=== PATIENT | female | born 1955 | race Caucasian/White ===

== ENCOUNTER 2019-02-21 07:58 | Emergency (ER) | payer BC ==
[2019-02-21 08:14] VITALS: BP 149/80
--- NOTE | 2019-02-21 08:26 | UC ---
Respiratory Complaint HPI - HPI Summary HPI Summary: cough x 1 week cough is productive with yellow sputum + nasal congestion and discharge, PND, no sore throat, no fever, no chills been taking mucinex with some improvements - History of Current Complaint Chief Complaint: UCGeneralIllness Stated Complaint: CONGESTION COUGH FATIGUE Time Seen by Provider: 02/21/19 08:18 Hx Obtained From: Patient Onset/Duration: Gradual Onset, Lasting Days - 7, Still Present Timing: Constant Severity Initially: Moderate Severity Currently: Moderate Pain Intensity: 0 Character: Cough: Productive - yellow sputum Aggravating Factors: Exertion, Deep Breaths Alleviating Factors: Nothing Associated Signs And Symptoms: Positive: URI, Nasal Congestion. Negative: Fever , Chills, Wheezing, Dizziness, Calf Pain, Calf Swelling, Hoarseness, Sinus Discomfort - Allergies/Home Medications Allergies/Adverse Reactions: Allergies Allergy/AdvReac Type Severity Reaction Status Date / Time acetaminophen [From NyQuil] Allergy Rash Verified 02/21/19 08:08 dextromethorphan Allergy Rash Verified 02/21/19 08:08 [From NyQuil] doxylamine [From NyQuil] Allergy Rash Verified 02/21/19 08:08 erythromycin base Allergy Vomiting Verified 02/21/19 08:08 Penicillins Allergy Rash Verified 02/21/19 08:08 pseudoephedrine [From NyQuil] Allergy Rash Verified 02/21/19 08:08 Home Medications: Home Medications Aspirin TAB* [Aspirin 325 MG TAB*] 325 mg PO DAILY 02/21/19 [History Confirmed 02/21/19] Losartan/Hydrochlorothiazide [Losartan-Hctz 100-12.5 mg Tab] 1 each PO DAILY [History Confirmed 02/21/19] Multivitamins/Minerals TAB* [Theragran/minerals TAB*] 1 tab PO DAILY 02/21/19 [ History Confirmed 02/21/19] Simvastatin [Zocor] 40 mg PO DAILY 02/21/19 [History Confirmed 02/21/19] guaiFENesin ER TAB [Mucinex*] 600 mg PO BID 02/21/19 [History Confirmed 02/21/19 ] PMH/Surg Hx/FS Hx/Imm Hx Cardiovascular History: Hypertension - Surgical History Surgical History: Yes Surgery Procedure, Year, and Place: - Family History Known Family History: Negative: Diabetes - Social History Alcohol Use: None Substance Use Type: None Smoking Status (MU): Heavy Every Day Tobacco Smoker Type: Cigarettes Amount Used/How Often: 1/2 PPD Household Exposure Type: Cigarettes Review of Systems All Other Systems Reviewed And Are Negative: Yes Constitutional: Positive: Negative Skin: Positive: Negative Eyes: Positive: Negative ENT: Positive: Nasal Discharge Respiratory: Positive: Cough Cardiovascular: Positive: Negative Is Patient Immunocompromised?: No Physical Exam Triage Information Reviewed: Yes Appearance: Well-Appearing, No Pain Distress, Well-Nourished Vital Signs: Initial Vital Signs Temp 98.7 F 02/21/19 08:08 Pulse 71 02/21/19 08:08 Resp 17 02/21/19 08:08 BP 149/80 02/21/19 08:08 Pulse Ox 98 02/21/19 08:08 Vital Signs Reviewed: Yes Eye Exam: Normal Eyes: Positive: Conjunctiva Clear ENT: Positive: Normal ENT inspection, Nasal drainage, TMs normal. Negative: TM bulging, TM dull, TM red, Tonsillar swelling, Tonsillar exudate, Sinus tenderness Neck: Positive: Supple, Nontender, No Lymphadenopathy Respiratory: Positive: Chest non-tender, Lungs clear, Normal breath sounds Cardiovascular: Positive: RRR, No Murmur, Pulses Normal Skin Exam: Normal Respiratory Course/Dx - Differential Dx/Diagnosis Provider Diagnosis: URI (upper respiratory infection) Discharge - Sign-Out/Discharge Documenting (check all that apply): Patient Departure All imaging exams completed and their final reports reviewed: No Studies - Discharge Plan Condition: Stable Disposition: HOME Patient Education Materials: Upper Respiratory Infection (DC) Referrals: Anahy Crisostomo MD [Primary Care Provider] - If Needed - Billing Disposition and Condition Condition: STABLE Disposition: Home
== END 2019-02-21 08:25 | disposition home or self-care (01) ==
LOC: UCCORT 07:58
DX: J06.9 Acute upper respiratory infection, unspecified (principal); R53.83 Other fatigue; I10 Essential (primary) hypertension; F17.210 Nicotine dependence, cigarettes, uncomplicated; Z79.82 Long term (current) use of aspirin; Z79.899 Other long term (current) drug therapy; Z88.0 Allergy status to penicillin; Z88.1 Allergy status to other antibiotic agents; Z88.8 Allergy status to other drugs, medicaments and biological substances
CPT/HCPCS: 99211; G0463

== ENCOUNTER 2020-02-01 21:23 | Emergency (ER) | payer BC ==
[2020-02-01] MEDS ORDERED: Lidocaine 2% JELLY* 10 ML JELLY TOPICAL ONE (23:03)
[2020-02-01] MEDS ORDERED: Tranexamic Acid 1,000 MG/10 ML SDV TOPICAL ONE (23:04)
[2020-02-01] MEDS ORDERED: Lidocaine 2% JELLY* 6 ML JELLY TOPICAL ONE (23:15)
--- NOTE | 2020-02-01 23:32 | ED ---
Throat Pain/Nasal Congestion - HPI Summary HPI Summary: 64-year-old male presents with nosebleed since yesterday. Her nose bleed has been been intermittent. It was both nostrils yesterday but it is more in the right nostril today. She is on a daily aspirin but has not taken it in 2 days. She has history of factor V Leiden. She denies any fevers. No cough. Has been intermittent down both nostrils and her throat. She has been apply pressure but then it returns. - History of Current Complaint Chief Complaint: EDEpistaxis Time Seen by Provider: 02/01/20 23:00 - Allergies/Home Medications Allergies/Adverse Reactions: Allergies Allergy/AdvReac Type Severity Reaction Status Date / Time acetaminophen [From NyQuil] Allergy Rash Verified 02/21/19 08:08 dextromethorphan Allergy Rash Verified 02/21/19 08:08 [From NyQuil] doxylamine [From NyQuil] Allergy Rash Verified 02/21/19 08:08 erythromycin base Allergy Vomiting Verified 02/21/19 08:08 Penicillins Allergy Rash Verified 02/21/19 08:08 pseudoephedrine [From NyQuil] Allergy Rash Verified 02/21/19 08:08 Home Medications: Home Medications Aspirin TAB* [Aspirin 325 MG TAB*] 325 mg PO DAILY 02/21/19 [History Confirmed 02/21/19] Losartan/Hydrochlorothiazide [Losartan-Hctz 100-12.5 mg Tab] 1 each PO DAILY [History Confirmed 02/21/19] Multivitamins/Minerals TAB* [Theragran/minerals TAB*] 1 tab PO DAILY 02/21/19 [ History Confirmed 02/21/19] Simvastatin [Zocor] 40 mg PO DAILY 02/21/19 [History Confirmed 02/21/19] guaiFENesin ER TAB [Mucinex*] 600 mg PO BID 02/21/19 [History Confirmed 02/21/19 ] PMH/Surg Hx/FS Hx/Imm Hx Endocrine/Hematology History: Denies: Hx Anticoagulant Therapy Cardiovascular History: Reports: Hx Hypertension - Surgical History Surgery Procedure, Year, and Place: Infectious Disease History: No Infectious Disease History: Denies: Traveled Outside the [place] in Last 30 Days - Family History Known Family History: Negative: Diabetes - Social History Alcohol Use: None Substance Use Type: Reports: None Smoking Status (MU): Heavy Every Day Tobacco Smoker Type: Cigarettes Amount Used/How Often: 1/2 PPD Review of Systems Negative: Fever Positive: Epistaxis Negative: Chest Pain Negative: Shortness Of Breath All Other Systems Reviewed And Are Negative: Yes Physical Exam Vital Signs On Initial Exam: Initial Vitals Temp Pulse Resp BP Pulse Ox 98.9 F 103 18 181/108 99 02/01/20 21:33 02/01/20 21:33 02/01/20 21:33 02/01/20 21:33 02/01/20 21:33 Procedures - Sedation Patient Received Moderate/Deep Sedation with Procedure: No Diagnostics - Vital Signs Vital Signs Temp Pulse Resp BP Pulse Ox 02/01/20 23:02 93 97 02/01/20 21:33 98.9 F 103 18 181/108 99 - Laboratory Lab Statement: Any lab studies that have been ordered have been reviewed, and results considered in the medical decision making process. Re-Evaluation - Re-Evaluation First Eval Re-Evaluation Time: 11:45 Comment: no active bleeding after TXA Second Eval Re-Evaluation Time: 00:15 Comment: still no bleeding EENT Course/Dx - Course Course Of Treatment: 64-year-old male presents with nosebleed since yesterday. Her nose bleed has been been intermittent. It was both nostrils yesterday but it is more in the right nostril today. She is on a daily aspirin but has not taken it in 2 days. She has history of factor V Leiden. She denies any fevers. No cough. Has been intermittent down both nostrils and her throat. She has been apply pressure but then it returns. On exam active bleeding from right nostril. placed TXA and bleeding stopped and remained stopped for a half an hour. will have use saline in nose. gave referral to ENT. told if bleeding continues to return. patient understand and agrees with plan. - Differential Diagnoses Differential Diagnoses: Epistaxis, Sinusitis, URI/Bronchitis - Diagnoses Provider Diagnoses: Epistaxis - Critical Care Time Critical Care Statement: Critical care time is provided exclusive of any time spent performing procedures. Discharge ED - Sign-Out/Discharge Documenting (check all that apply): Patient Departure - Discharge Plan Condition: Good Disposition: HOME Patient Education Materials: Nosebleed (ED) Referrals: Anahy Crisostomo MD [Primary Care Provider] - Yifan Jaime MD [Medical Doctor] - Additional Instructions: apply ice and compression if nosebleed returns Follow up with ENT if get continued nosebleed hold aspirin for next couple days use saline in nose Return to ED if develop any new or worsening symptoms - Billing Disposition and Condition Condition: GOOD Disposition: Home
[2020-02-02 00:21] VITALS: BP 134/74
== END 2020-02-02 00:20 | disposition home or self-care (01) ==
LOC: ED 21:23
DX: R04.0 Epistaxis (principal); I10 Essential (primary) hypertension; F17.210 Nicotine dependence, cigarettes, uncomplicated; Z88.0 Allergy status to penicillin; Z79.899 Other long term (current) drug therapy; Z79.82 Long term (current) use of aspirin
CPT/HCPCS: 99282; A9270-GY